=== PATIENT | male | born 1970 | race Caucasian/White ===

== ENCOUNTER 2022-05-31 09:05 | Emergency (ER) | payer OTHER ==
[~2022-05-31] VITALS: Ht 180.3 cm; Wt 105.8 kg
[2022-05-31 09:18] VITALS: BP 137/91
--- NOTE | 2022-05-31 09:24 | NUR ---
PT AMB TO BED 7
--- NOTE | 2022-05-31 09:31 | NUR ---
Dr Garcia at bedside to assess pt
[2022-05-31] MEDS ORDERED: BACITRACIN OINT 500 UNITS/GM PKT TP ONE (09:35)
--- NOTE | 2022-05-31 09:45 | NUR ---
LARGE BANDAIDS X 2 APPLIED TO FOREHEAD
[2022-05-31 10:05] VITALS: BP 132/74
--- NOTE | 2022-05-31 10:05 | NUR ---
Patient discharged with v/s stable. Written and verbal after care instructions given and explained with teachback. Patient verbalized understanding. Ambulatory with steady gait. All questions addressed prior to discharge. Advised to follow up with PMD.
== END 2022-05-31 10:05 | disposition home or self-care (01) ==
LOC: MED 09:05
DX: S00.81XA Abrasion of other part of head, initial encounter (principal); W45.8XXA Other foreign body or object entering through skin, initial encounter; Y93.89 Activity, other specified; Y92.89 Other specified places as the place of occurrence of the external cause; Y99.8 Other external cause status
CPT/HCPCS: 90471; 90715; 99283